=== PATIENT | female | born 1980 | race Caucasian/White ===

== ENCOUNTER 2025-01-08 02:13 | Emergency (ER) | payer MEDICAID ==
[~2025-01-08] VITALS: Ht 167.6 cm; Wt 73.0 kg
[2025-01-08 02:20] VITALS: BP 132/86; PULSE 115; RESP 16; TEMP 36.7; O2SAT 100
[2025-01-08 03:34] LABS: ADD RBC MORPHOLOGY YES; BASOPHILS % 0.5 % (0.0-2.0); DIFFERENTIAL COMMENT 1; EOSINOPHILS % 0.2 % (0.0-5.0); HEMATOCRIT. 36.6 % (36.0-48.0); HEMOGLOBIN. 12.1 g/dL (12.0-16.0); LYMPHOCYTES % 30.8 % (20.0-50.0); MEAN CORPUSCULAR HEMOGLOBIN 25.7 pg (28.0-32.0); MEAN CORPUSCULAR VOLUME 77.9 fL (81.0-99.0); MEAN PLATELET VOLUME 8.8 fl (7.4-10.4); NEUTROPHILS % 56.5 % (40.0-76.0); PLATELET 66 x1000/uL (130-400); RED CELL DISTRIBUTION WIDTH 25.8 % (11.6-14.6); WHITE BLOOD COUNT 6.7 x1000/uL (4.5-11.0)
[2025-01-08 04:00] LABS: CHLORIDE 107 mEq/L (98-107); POTASSIUM 3.6 mEq/L (3.5-5.1); SODIUM 142 mEq/L (136-145)
[2025-01-08 04:01] LABS: CARBON DIOXIDE 23 mEq/L (21-32)
[2025-01-08 04:06] LABS: CREATININE 0.7 mg/dL (0.6-1.0); GLUCOSE 167 mg/dL (70-105); UREA NITROGEN BLOOD 15 mg/dL (9-23)
[2025-01-08 04:31] LABS: INR 1.5; PARTIAL THROMBOPLASTIN TIME 29.4 sec (23.4-31.0); PROTHROMBIN TIME 15.9 sec (9.6-11.0)
[2025-01-08 04:46] LABS: HCG SCREEN NEGATIVE
[2025-01-08 04:50] LABS: ALANINE AMINOTRANSFERASE 55 IU/L (10-49); ALBUMIN 3.7 g/dL (3.2-4.8); ASPARTATE AMINOTRANSFERASE 211 IU/L (<34); BILIRUBIN TOTAL 5.1 mg/dL (0.1-1.0); PROTEIN TOTAL 7.4 g/dL (6.0-8.3)
[2025-01-08 05:19] LABS: PLATELET ESTIMATE DECREASED
[2025-01-08 05:21] LABS: ANISOCYTOSIS 2+
[2025-01-08 12:34] LABS: CALCIUM 8.9 mg/dL (8.7-10.4)
== END 2025-01-08 04:24 | disposition left against medical advice (07) ==
LOC: ER 02:31
DX: R53.1 Weakness (principal); F41.9 Anxiety disorder, unspecified; I10 Essential (primary) hypertension
CPT/HCPCS: 36415; 80048; 80076; 84703; 85025; 99283